=== PATIENT | male | born 1995 | race Hispanic/Latino ===

== ENCOUNTER 2020-09-12 13:27 | Inpatient (IN) | payer SELFPAY ==
[2020-09-12] VITALS (15 sets, daily range): BP systolic 114–137; BP diastolic 57–86
[~2020-09-12] VITALS: Ht 182.9 cm; Wt 116.1 kg
[2020-09-12 13:57] LABS: BASOPHILS % (AUTO) 0.4 % (0.0-5.0); EOSINOPHILS % (AUTO) 0.9 % (0.0-8.0); HEMATOCRIT 46.5 % (42-54); LYMPHOCYTES % (AUTO) 11.8 % (21.0-51.0); MEAN CORPUSCULAR HEMOGLOBIN 27.1 pg (27.0-33.0); MEAN CORPUSCULAR HGB CONC 32.5 g/dL (32.0-36.0); MEAN CORPUSCULAR VOLUME 83.5 fL (79-99); MONOCYTES % (AUTO) 6.1 % (3.0-13.0); NEUTROPHILS % (AUTO) 80.1 % (40.0-77.0); PLATELET COUNT (AUTO) 386 K/uL (130-400); RED BLOOD CELL COUNT(AUTO) 5.57 MIL/uL (4.50-6.20); RED CELL DISTRIBUTION WIDTH 12.2 % (11.0-15.5); WHITE BLOOD COUNT (AUTO) 16.6 K/uL (4.8-10.8)
[2020-09-12] MEDS ORDERED: ONDANSETRON HCL 4 MG/2 ML VIAL ONE ×2 (13:59→18:58)
[2020-09-12 14:05] LABS: CREATININE 1.2 mg/dL (0.5-1.5); POTASSIUM 3.6 mmol/L (3.5-5.1)
[2020-09-12 14:10] LABS: ALBUMIN 3.4 g/dL (3.5-5.0); BILIRUBIN,TOTAL 0.3 mg/dL (0.2-1.0); TOTAL PROTEIN, SERUM 7.8 g/dL (6.0-8.3)
[2020-09-12] MEDS ORDERED: ZOSYN 3.375GM+NS 50ML 50 ML IV ONE (14:26)
[2020-09-12 14:32] LABS: APPEARANCE,URINE Clear (CLEAR); BILIRUBIN,URINE Negative (NEGATIVE); COLOR,URINE Yellow (YELLOW); GLUCOSE, URINE (UA) Negative (NEGATIVE); KETONES,URINE Negative (NEGATIVE); LEUKOCYTE ESTERASE ,URINE Negative (NEGATIVE); NITRATE,URINE Negative (NEGATIVE); OCCULT BLOOD,URINE Negative (NEGATIVE); PROTEIN,URINE Negative (NEGATIVE); UROBILINOGEN,URINE 0.2 mg/dL (0.2-1.0)
[2020-09-12] MEDS ORDERED: IOHEXOL-350 75 ML VIAL IV ONE (16:13)
[2020-09-12] MEDS ORDERED: BUPIVACAINE/PF 0.5% 30ML VIAL ONE (18:41)
[2020-09-12] MEDS ORDERED: LIDOCAINE PF 2% 5ML ABBOJECT ONE (18:57)
[2020-09-12] MEDS ORDERED: SUCCINYLCHOLINE CHLORIDE 20 MG/ML 10 ML VIAL ONE (18:57)
[2020-09-12] MEDS ORDERED: DEXAMETHASONE SOD PHOSPHATE 10MG/ML 1ML VIAL ONE (18:57)
[2020-09-12] MEDS ORDERED: NEOSTIGMINE 5MG/5ML SYR IV ONE (18:58)
[2020-09-12] MEDS ORDERED: ROCURONIUM 10MG/1ML SYR 10 MG/ML ML ONE (18:58)
[2020-09-12] MEDS ORDERED: FENTANYL CITRATE PF 50 MCG/1 ML 2ML VIAL ONE ×3 (18:58→19:38)
[2020-09-12] MEDS ORDERED: PROPOFOL 10 MG/ML 20ML VIAL IV ONE (18:58)
[2020-09-12] MEDS ORDERED: GLYCOPYRROLATE 1 MG/5 ML SYRINGE ONE (18:58)
[2020-09-12] MEDS ORDERED: MIDAZOLAM HCL 1 MG/ML 2ML VIAL ONE (18:58)
[2020-09-12] MEDS ORDERED: MEPERIDINE-PF 25 MG/ML SYG ONE ×2 (18:59→19:17)
[2020-09-12] MEDS ORDERED: KETOROLAC TROMETHAMINE 30MG/ML ONE (19:30)
[2020-09-12] MEDS ORDERED: ONDANSETRON HCL 4 MG/2 ML VIAL IVP PRN (22:00)
[2020-09-12] MEDS ORDERED: MORPHINE SULFATE 4 MG/1ML SYG IVP PRN (22:00)
[2020-09-12] MEDS: ZOSYN 3.375GM+NS 50ML 50 ML IV SCH (22:32)
[2020-09-13] VITALS: BP 127/70
[2020-09-13 04:00] VITALS: BP 132/64
[2020-09-13 05:18] LABS: HEMATOCRIT 43.8 % (42-54); MEAN CORPUSCULAR HEMOGLOBIN 26.5 pg (27.0-33.0); MEAN CORPUSCULAR VOLUME 82.8 fL (79-99); RED BLOOD CELL COUNT(AUTO) 5.29 MIL/uL (4.50-6.20); RED CELL DISTRIBUTION WIDTH 12.2 % (11.0-15.5); WHITE BLOOD COUNT (AUTO) 20.7 K/uL (4.8-10.8)
[2020-09-13 05:45] LABS: CREATININE 1.2 mg/dL (0.5-1.5); POTASSIUM 4.2 mmol/L (3.5-5.1)
[2020-09-13] MEDS: ZOSYN 3.375GM+NS 50ML 50 ML IV SCH ×3 (05:50→20:02)
[2020-09-13 08:00] VITALS: BP 125/60
[2020-09-13] MEDS: LACTATED RINGERS 1000ML 1,000 ML IV SCH ×2 (09:06→14:06)
[2020-09-13 11:18] VITALS: BP 122/77
[2020-09-13 15:58] VITALS: BP 157/96
[2020-09-13 20:00] VITALS: BP 121/77
[2020-09-13] MEDS: KETOROLAC TROMETHAMINE 30MG/ML IV PRN (20:06)
[2020-09-14] VITALS: BP 125/58
[2020-09-14] MEDS: LACTATED RINGERS 1000ML 1,000 ML IV SCH ×3 (02:56→23:03)
[2020-09-14 04:00] VITALS: BP 167/91
[2020-09-14] MEDS: ZOSYN 3.375GM+NS 50ML 50 ML IV SCH ×3 (05:41→21:09)
[2020-09-14 07:47] VITALS: BP 126/73
[2020-09-14 10:54] VITALS: BP 132/77
[2020-09-14 16:27] VITALS: BP 129/68
[2020-09-14 20:00] VITALS: BP 122/76
[2020-09-14] MEDS: KETOROLAC TROMETHAMINE 30MG/ML IV PRN (21:12)
[2020-09-15] VITALS (7 sets, daily range): BP systolic 120–151; BP diastolic 67–85
[2020-09-15] MEDS: ZOSYN 3.375GM+NS 50ML 50 ML IV SCH ×3 (05:34→21:25)
[2020-09-15] MEDS: LACTATED RINGERS 1000ML 1,000 ML IV SCH ×2 (07:45→17:45)
[2020-09-15 13:24] LABS: MEAN CORPUSCULAR HEMOGLOBIN 26.8 pg (27.0-33.0); RED BLOOD CELL COUNT(AUTO) 4.88 MIL/uL (4.50-6.20); RED CELL DISTRIBUTION WIDTH 12.6 % (11.0-15.5); WHITE BLOOD COUNT (AUTO) 12.4 K/uL (4.8-10.8)
[2020-09-15 13:40] LABS: CREATININE 1.1 mg/dL (0.5-1.5); POTASSIUM 4.1 mmol/L (3.5-5.1)
[2020-09-16 03:27] VITALS: BP 126/84
[2020-09-16] MEDS ORDERED: LACTATED RINGERS 1000ML 1,000 ML IV ONE (07:14)
[2020-09-16] MEDS: ZOSYN 3.375GM+NS 50ML 50 ML IV SCH ×3 (07:22→20:46)
[2020-09-16 08:00] VITALS: BP 149/75
[2020-09-16 12:00] VITALS: BP 130/85
[2020-09-16 15:43] VITALS: BP 137/80
[2020-09-16 20:16] VITALS: BP 134/74
[2020-09-17 00:16] VITALS: BP 131/62
[2020-09-17 04:03] LABS: BASOPHILS % (AUTO) 0.4 % (0.0-5.0); EOSINOPHILS % (AUTO) 3.4 % (0.0-8.0); HEMATOCRIT 44.8 % (42-54); MEAN CORPUSCULAR HEMOGLOBIN 26.4 pg (27.0-33.0); MEAN CORPUSCULAR HGB CONC 31.5 g/dL (32.0-36.0); MEAN CORPUSCULAR VOLUME 83.9 fL (79-99); MONOCYTES % (AUTO) 6.2 % (3.0-13.0); NEUTROPHILS % (AUTO) 65.6 % (40.0-77.0); PLATELET COUNT (AUTO) 457 K/uL (130-400); RED BLOOD CELL COUNT(AUTO) 5.34 MIL/uL (4.50-6.20); RED CELL DISTRIBUTION WIDTH 12.6 % (11.0-15.5); WHITE BLOOD COUNT (AUTO) 12.7 K/uL (4.8-10.8)
[2020-09-17 04:16] VITALS: BP 131/70
[2020-09-17 04:16] LABS: POTASSIUM 4.4 mmol/L (3.5-5.1)
[2020-09-17] MEDS: ZOSYN 3.375GM+NS 50ML 50 ML IV SCH ×3 (05:56→22:31)
[2020-09-17 08:09] VITALS: BP_SYST 105; BP_SYST 139; BP_DIAS 53; BP_DIAS 67
[2020-09-17 12:10] VITALS: BP 140/74
[2020-09-17 17:20] VITALS: BP 135/69
[2020-09-17 20:08] VITALS: BP 157/81
[2020-09-18 00:08] VITALS: BP 124/64
[2020-09-18 04:08] VITALS: BP 126/63
[2020-09-18 05:46] LABS: HEMATOCRIT 45.6 % (42-54); MEAN CORPUSCULAR HEMOGLOBIN 26.3 pg (27.0-33.0); MEAN CORPUSCULAR HGB CONC 31.6 g/dL (32.0-36.0); MEAN CORPUSCULAR VOLUME 83.2 fL (79-99); RED BLOOD CELL COUNT(AUTO) 5.48 MIL/uL (4.50-6.20); RED CELL DISTRIBUTION WIDTH 12.5 % (11.0-15.5)
[2020-09-18] MEDS: ZOSYN 3.375GM+NS 50ML 50 ML IV SCH ×3 (06:42→23:58)
[2020-09-18 09:23] VITALS: BP_SYST 111; BP_SYST 140; BP_DIAS 66; BP_DIAS 71
[2020-09-18] MEDS ORDERED: DIATR MEGLU/DIATRIZOATE SODIUM 30 ML BOTTLE ONE (10:32)
[2020-09-18 13:02] VITALS: BP 135/85
[2020-09-18] MEDS ORDERED: IOHEXOL 350 MG/ML 100ML INFUS..BTL IV ONE (13:05)
[2020-09-18 16:40] VITALS: BP 140/76
[2020-09-18 20:08] VITALS: BP 142/66
[2020-09-19] VITALS (8 sets, daily range): BP systolic 101–139; BP diastolic 47–78
[2020-09-19] MEDS: ZOSYN 3.375GM+NS 50ML 50 ML IV SCH ×3 (05:45→21:19)
[2020-09-19 09:51] LABS: BASOPHILS % (AUTO) 0.6 % (0.0-5.0); EOSINOPHILS % (AUTO) 2.2 % (0.0-8.0); HEMATOCRIT 45.2 % (42-54); LYMPHOCYTES % (AUTO) 14.2 % (21.0-51.0); MEAN CORPUSCULAR HEMOGLOBIN 26.7 pg (27.0-33.0); MEAN CORPUSCULAR HGB CONC 31.9 g/dL (32.0-36.0); MEAN CORPUSCULAR VOLUME 83.9 fL (79-99); MONOCYTES % (AUTO) 4.2 % (3.0-13.0); NEUTROPHILS % (AUTO) 76.7 % (40.0-77.0); PLATELET COUNT (AUTO) 477 K/uL (130-400); RED BLOOD CELL COUNT(AUTO) 5.39 MIL/uL (4.50-6.20); RED CELL DISTRIBUTION WIDTH 12.7 % (11.0-15.5); WHITE BLOOD COUNT (AUTO) 15.1 K/uL (4.8-10.8)
[2020-09-20 04:17] VITALS: BP 124/71
[2020-09-20] MEDS: ZOSYN 3.375GM+NS 50ML 50 ML IV SCH ×2 (05:15→14:00)
[2020-09-20 08:05] VITALS: BP 136/70
[2020-09-20 11:50] VITALS: BP 129/59
[2020-09-20 14:33] LABS: BASOPHILS % (AUTO) 0.5 % (0.0-5.0); EOSINOPHILS % (AUTO) 2.4 % (0.0-8.0); MEAN CORPUSCULAR HEMOGLOBIN 26.4 pg (27.0-33.0); MEAN CORPUSCULAR HGB CONC 31.5 g/dL (32.0-36.0); MEAN CORPUSCULAR VOLUME 83.8 fL (79-99); MONOCYTES % (AUTO) 5.7 % (3.0-13.0); NEUTROPHILS % (AUTO) 67.8 % (40.0-77.0); PLATELET COUNT (AUTO) 526 K/uL (130-400); RED BLOOD CELL COUNT(AUTO) 5.49 MIL/uL (4.50-6.20); RED CELL DISTRIBUTION WIDTH 12.6 % (11.0-15.5)
[2020-09-20 16:28] VITALS: BP 129/67
[2020-09-21 07:55] VITALS: BP 112/61
== END 2020-09-20 18:44 | disposition home or self-care (01) | DRG 340 ==
LOC: EDH 13:27 → EDHIP 13:28 → OBSVTOIN 13:28 → 3AH 19:50
PROVIDERS: ADMIT Surgery; ATTEND Surgery
PROC: 0DTJ4ZZ Resection of Appendix, Percutaneous Endoscopic Approach (ICD-10-PCS; principal; 2020-09-12 18:55)
DX: K35.32 Acute appendicitis with perforation, localized peritonitis, and gangrene, without abscess (principal); Z20.822 Contact with and (suspected) exposure to COVID-19
CPT/HCPCS: 36415; 74177; 80048; 80053; 81003; 83605; 83690; 85025; 85027; 87040; 87070; 87076; 87077; 87186; 87426; 99291; G0378; J0330; J1100; J1885; J2001; J2175; J2250; J2405; J2543; J2704; J2710; J3010; J3490; J7030; J7120; Q9963; Q9967; U0003